=== PATIENT | male | born 1955 | race Caucasian/White ===

== ENCOUNTER 2017-02-08 03:04 | Emergency (ER) | payer OTHER ==
[~2017-02-08 03:04] MED LIST: FINA5TAB9 PO; VIT1TABL83 PO; glucosamine; vitamin c; vitamin d3
[2017-02-08 03:08] VITALS: BP 129/81; PULSE 112; RESP 20; O2SAT 99
--- NOTE | 2017-02-08 03:24 | ED.REPORT ---
HPI- Male Date of Service February 08, 2017 ED Provider: Irving Celaya MD A 61 year old male with a Johnson catheter and recent TURP procedure (16 days) presents to the ED with hematuria that began yesterday. Associated symptoms include urinary retention, blood clots in the urine and abdominal pressure. His symptoms initially began yesterday morning but became increasingly worse as the day progressed. Patient has a full distended bladder upon arrival per nursing note. Nursing Notes Stated Complaint: BLOOD IN URINE POST SURGERY Chief Complaint: Male Abdominal Pain Nursing Notes Reviewed: Yes Allergies: Coded Allergies: No Known Allergies (Unverified , 10/02/15) Scheduled ([glucosamine]) Unknown Dose DAILY ([vitamin c]) Unknown Dose DAILY ([vitamin d3]) Unknown Dose DAILY Finasteride (Finasteride) 5 Mg Tablet 5 MG PO DAILY Vit B Comp/C/FA/Iron/Vit E (Vitamin B Complex Tablet) 1 Each Tablet 1 EACH PO DAILY General Time Seen by MD: 03:16 Chief Complaint Blood in urine Hx Obtained From: Patient Arrived By: Walk-in Onset Occurred: 2 days ago Symptom Duration: Since onset Location: : Abdomen lower Quality: Pressure Radiation: : Does not radiate Severity: Current: Mild Severity: Maximum: Mild Associated with: Reports: Abdominal pain, UTI symptoms... (Hematuria) Pertinent Negative: Pt denies other symptoms Recent Healthcare: No recent hospitalization, Recent doctor visit Past Medical History Past Medical History BPH Osteoarthritis Past Surgical History hernia repair Partial left knee replacement surgery TURP Smoking History Current Every Day Smoker, Light Tobacco Smoker Social History Alcohol Use: "Social" Drug Use: Denies drug use Other Social History: Good social support, Local resident Ambulatory Status Independent Review of Systems GI: Reports: Abdominal pain Male: Reports Hematuria, Reports Urination decreased (Urinary retention) Complete sys rev & neg: except as marked. Physical Exam Initial Vital Signs Vital Signs (First) Date Time Temp Pulse Resp B/P Pulse Ox O2 Delivery O2 Flow Rate FiO2 02/08/17 03:08 36.6 112 20 129/81 99 Room Air Initial VS: Reviewed, Vital signs normal Neck: Supple, Non-tender, Full range of motion Extremities: Vascular intact, Neuro intact, No swelling, No tenderness Skin: Warm, Dry, No cyanosis Neurologic: Alert, Oriented, Nonfocal Psychiatric: Mood/affect normal, Behavior normal, Normal thought content General/Constitutional: Awake, Alert Abdomen: Atraumatic, Soft, Non-tender, No distention (distended upon inital arrival; resolved ) Respiratory / Chest: Atraumatic, No respiratory distress Re-Eval/Medical Decision Med Decision/Clinical Course 61-year-old male tender status post TURP with recurrent bleeding and urinary retention. Johnson catheter was placed. 900 mL of bloody urine was drained which gradually became less bloody.. Patient was set up with a leg bag and will keep the Johnson in place. Re-Evaluation/Progress : Time of Eval: 03:35 Patient Status: Condition improved Re-Evaluation/Progress Note: His abdominal discomfort has resolved and his concerns are addressed. He understands and agrees with the plan to discharge with follow-up. Counseled Regarding: Diagnosis, Lab results, Need for follow-up, When/why to return to ED Discharge & Departure Impression: Primary Impression: Urinary retention Additional Impression: Postoperative vaginal bleeding following genitourinary procedure Disposition: Home Discharge Condition All VS Reviewed: Yes Condition: Stable Patient Instructions: Johnson Catheter Placement and Care (GEN) Additional Instructions: The catheter needs to repeat remain in place for a few days. See catheter care instructions. Return here if the bleeding increases or if the catheter gets clogged. Call me at [phone] between the hours of 9 PM and 6 AM the next couple of nights if you have any questions or concerns. Referrals: Omar Mireles MD (PCP) Pro Attestation Portions of this note were transcribed by Jigna Mason. I, Dr. Celaya personally performed the history, physical exam and medical decision-making; I reviewed and confirmed the accuracy of the information in the transcribed note. Signed by: Pro Odonnell, 02/08/17 0344. copies to: Omar Mireles MD, Irving Vanegas MD February 08, 2017 03:24 JIGNA MASON February 08, 2017 03:29
== END 2017-02-08 04:17 | disposition home or self-care (01) ==
LOC: SED 03:04
DX: N99.89 Other postprocedural complications and disorders of genitourinary system (principal); R33.9 Retention of urine, unspecified; N99.820 Postprocedural hemorrhage of a genitourinary system organ or structure following a genitourinary system procedure; Y83.8 Other surgical procedures as the cause of abnormal reaction of the patient, or of later complication, without mention of misadventure at the time of the procedure; Y92.9 Unspecified place or not applicable; Y93.9 Activity, unspecified; Y99.9 Unspecified external cause status; R10.9 Unspecified abdominal pain; N40.1 Benign prostatic hyperplasia with lower urinary tract symptoms; M19.90 Unspecified osteoarthritis, unspecified site; F17.200 Nicotine dependence, unspecified, uncomplicated; Z90.79 Acquired absence of other genital organ(s); Z96.0 Presence of urogenital implants

== ENCOUNTER 2017-02-08 10:20 | Emergency (ER) | payer OTHER ==
[~2017-02-08] VITALS: Ht 182.9 cm; Wt 84.1 kg
[2017-02-08 10:23] VITALS: BP 135/83; PULSE 90; RESP 12; O2SAT 99
--- NOTE | 2017-02-08 10:53 | ED.REPORT ---
HPI-Abd Pain M 40 and Over Date of Service February 08, 2017 ED Provider: David Weems DO Pt is a 61 y.o. male with a Martinez catheter and recent TURP procedure (01/23/17) who presents to the ED c/o urinary retention onset this morning. Pt reports associated suprapubic abdominal pressure. Pt was seen in the ED at 0300 today for hematuria, urinary retention, and blood clots in the urine. He was discharged with a new catheter and instructions to follow-up with his urologist later this week or return for urinary retention. Nursing Notes Stated Complaint: CLOGGED CATHETER Chief Complaint: Male Abdominal Pain Nursing Notes Reviewed: Yes Allergies: Coded Allergies: No Known Allergies (Unverified , 10/02/15) Scheduled ([glucosamine]) Unknown Dose DAILY ([vitamin c]) Unknown Dose DAILY ([vitamin d3]) Unknown Dose DAILY Finasteride (Finasteride) 5 Mg Tablet 5 MG PO DAILY Vit B Comp/C/FA/Iron/Vit E (Vitamin B Complex Tablet) 1 Each Tablet 1 EACH PO DAILY General Time Seen by MD: 10:51 Chief Complaint Urinary cath not draining Hx Obtained From: Patient Arrived By: Walk-in Sudden in Onset?: Yes Onset Occurred: 1 - 4 hours ago Location: : Suprapubic Quality: Pressure Severity: Current: Mild Recent Healthcare: Recent doctor visit Past Medical History Past Medical History BPH Osteoarthritis Past Surgical History hernia repair Partial left knee replacement surgery TURP Smoking History Current Every Day Smoker, Light Tobacco Smoker Social History Alcohol Use: "Social" Drug Use: Denies drug use Other Social History: Good social support, Local resident Ambulatory Status Independent Review of Systems GI: Reports: Abdominal pain (pressure) Male: Reports Urination decreased Complete sys rev & neg: except as marked. Physical Exam Initial Vital Signs Vital Signs (First) Date Time Temp Pulse Resp B/P Pulse Ox O2 Delivery O2 Flow Rate FiO2 02/08/17 10:23 36.4 90 12 135/83 99 Room Air Initial VS: Reviewed Head / Eyes: Atraumatic, Normocephalic Extremities: Vascular intact, Neuro intact Skin: Warm, Dry, No cyanosis Neurologic: Alert, Oriented, Nonfocal Psychiatric: Mood/affect normal, Behavior normal, Normal thought content General/Constitutional: Awake, Alert, No acute distress, Well appearing, Well developed, Well hydrated, Well nourished, Not toxic appearing Respiratory / Chest: Atraumatic, Breath sounds NL, Breath sounds = bilat, No respiratory distress Cardiovascular: Heart rate NL, Regular rhythm, Heart sounds NL Abdomen: Atraumatic, Soft, Non-tender, No distention Back: Atraumatic Interpretation & Diagnostics Lab Results Interpretation Test 02/08/17 14:29 Hold Urine Received (Received) Procedures Martinez Catheter Replaced pt's straight martinez and irrigated Time: 11:20 Consent / Setup / Site Prep: Consent from patient, Hand hygiene observed, Stand sterile technique, Standard Martinez site prep Martinez Insertion: Urethra Catheter Type: 3-way genitourinary Martinez Connected to: Bedside drainage bag Insertion / Complications: Insertion successful, No complications Re-Eval/Medical Decision Med Decision/Clinical Course Catheter was successfully replaced and flushed with 2 large bags of normal saline until the urine was clear. There is no sign of UTI on urinalysis. Prior to discharge the patient repeatedly requested that we remove the catheter and that he could return should he be unable to urinate. After his TURP he was not discharged with a catheter and had no problems urinating. He has plans to follow up with his urologist early next week. At patient's request the catheter was withdrawn and he understands that he may need to return again for urinary retention. Source of Hx: Old records Time of Eval: 13:21 Re-Evaluation/Progress Note: Pt rechecked. Pt feels improved. Discussed plan for discharge, pt understands and agrees with plan. Time of Eval: 14:24 Re-Evaluation/Progress Note: Pt requested catheter be removed before discharge. Catheter was removed. Strict follow-up precautions given. Counseled Regarding: Diagnosis, Lab results, Need for follow-up, When/why to return to ED Discharge & Departure Primary Impression: Urinary retention Disposition: Home Vital Signs - All Vital Signs Date Time Temp Pulse Resp B/P Pulse Ox O2 Delivery O2 Flow Rate FiO2 02/08/17 13:49 36.9 78 20 133/78 99 Room Air 02/08/17 10:23 36.4 90 12 135/83 99 Room Air )( All Prior VS Reviewed: Yes Condition: Improved Patient Instructions: Urinary Retention in Men (GEN) Additional Instructions: Thank you for entrusting us with your care today. You catheter was replaced and flushed today, then removed at your request. Call your urologist Friday to schedule a follow-up appointment. Return if you can no longer urinate, you experience abdominal pain, or have any new or worsening symptoms. Referrals: Omar Mireles MD (PCP) Pro Attestation Portions of this note were transcribed by Hina Aquino. I, Dr. Weems personally performed the history, physical exam and medical decision-making; I reviewed and confirmed the accuracy of the information in the transcribed note. Signed by: Pro Galarza, 02/08/17 and [id number] copies to: Omar Mireles MD, Gary R DO February 08, 2017 10:53 HINA AQUINO February 08, 2017 11:13
[2017-02-08] MEDS ORDERED: Lidocaine 2% 5 mL Topical Jelly TOPICAL ONE (11:40)
[2017-02-08] MEDS ORDERED: HYDROcodone-APAP 10-325 mg PO ONE (11:40)
[2017-02-08 13:49] VITALS: BP 133/78; PULSE 78; RESP 20; O2SAT 99
[2017-02-08 19:41] LABS: APPEARANCE,URINE HAZY (CLEAR,HAZY); COLOR,URINE BLOODY (YELLOW)
[2017-02-08 19:42] LABS: OCCULT BLOOD,URINE LARGE (NEGATIVE)
== END 2017-02-08 14:33 | disposition home or self-care (01) ==
LOC: SED 10:20
DX: R33.9 Retention of urine, unspecified (principal); F17.200 Nicotine dependence, unspecified, uncomplicated; Z98.890 Other specified postprocedural states